=== PATIENT | female | born 1995 | race Caucasian/White ===

== ENCOUNTER 2025-07-16 11:03 | Observation (INO) ==
--- NOTE | 2025-07-16 12:10 | Emergency Department Note ---
Impression & Plan Mastitis, Abscess of right breast associated with ED Provider Note CHIEF COMPLAINT: "Mastitis" HISTORY OF PRESENT ILLNESS: This 30-year-old female patient presents to the emergency department via private vehicle for evaluation of mastitis. The patient was referred by CLINICAL LAB TECHNOLOGIST. She states that she developed redness of the right breast with change in milk output and fever on Saturday. She states that she contacted CLINICAL LAB TECHNOLOGIST on Saturday and was started on dicloxacillin. She has been on this for greater than 48 hours and states her fever has resolved, but the right breast remains very erythematous and firm. She denies any purulent discharge. She states she has had decreased milk output. She states the breast feels very warm. She has been taking Tylenol and ibuprofen with some improvement in her pain, but continued to have moderate to severe pain in the right breast. The patient denies any bodyaches or chills. She denies any other associated symptoms. Patient contacted CLINICAL LAB TECHNOLOGIST earlier today due to the persistent redness and tenderness in the breast and was referred to the emergency department to evaluate for possible abscess. History provided by: Patient REVIEW OF SYSTEMS: A 10 system review of systems was performed with positives and pertinent negatives listed in the history of present illness. All other systems were reviewed and are negative. ALLERGIES: NKDA PHYSICAL EXAM: VITALS: Vitals are noted on the nurse's note and reviewed by myself. GENERAL: This is a 30-year-old female, in no acute distress, nondiaphoretic, well-developed well-nourished. SKIN: Erythema and edema of the right breast with tenderness to palpation. The area is indurated and firm. No obvious fluctuance. Breast milk leaking from the right nipple. No open wounds or cracks in the skin. The skin was without rashes, erythema, edema, or bruising. There is no tenting of the skin. Capillary refill less than 2 seconds. HEAD: Normocephalic atraumatic. EYES: Conjunctivae without injection, sclerae without icterus. Extraocular movements intact. NOSE: Patent, turbinates without inflammation or discharge. No sinus tenderness. MOUTH: Mucous membranes moist. Tonsils are not enlarged. Pharynx without erythema or exudate. Uvula midline. Airway patent. Tongue does not deviate. NECK: Supple without nuchal rigidity. No lymphadenopathy. Cervical spine is nontender. No JVD. HEART: Regular rate and rhythm without murmurs gallops or rubs. LUNGS: Clear to auscultation bilaterally without wheezes, rales or rhonchi. No retractions or accessory muscle use. MUSCULOSKELETAL: No muscle atrophy, erythema, or edema noted. Full range of motion without joint tenderness in all extremities. No tenderness to palpation. Normal gait. Strength 5/5 throughout. NEURO: Patient was alert and oriented to person place and time. No focal neurological deficits. 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 The monitor showed a normal sinus rhythm at a ventricular rate of 78 bpm, per my interpretation. Imaging as interpreted by myself and the radiologist revealed findings concerning for abscess, with radiologist interpretation as above. I agree with the radiologist's findings as based upon my independent interpretation. EMERGENCY DEPARTMENT COURSE: The patient was evaluated as above. The patient presents to the emergency department today at approximately 5 weeks due to persistent erythema, edema, and tenderness of the right breast. The patient is currently on dicloxacillin for mastitis. Fever, chills, body aches have improved. Patient continues to experience worsening redness and pain in the right breast. IV access was obtained, labs were drawn. Blood cultures were obtained and sent to the lab. The patient was hydrated with IV fluids and medicated with Toradol. She was subsequently medicated with vancomycin and ceftriaxone. Labs were reviewed. Per my interpretation, no leukocytosis or concerning anemia. No thrombocytopenia. Renal, hepatic function and electrolytes without significant abnormality. Blood glucose mildly elevated at 138. C-reactive protein elevated 29.79. Procalcitonin normal at 0.31. Lactic acid 1.2. Ultrasound was completed and reviewed by myself radiologist as noted. This does show a superficial subcutaneous fluid collection in the right breast concerning for possible early or developing abscess. I discussed the case with [facility] CLINICAL LAB TECHNOLOGIST on-call. I spoke with Dr. Jerez. She notes that this is a surgical problem and recommends the general surgery be consulted and determine next course of action. She does not feel that patient will likely improve on IV antibiotics without intervention. I discussed the case with general surgery on-call. Spoke with MONIQUE Manzo. She did evaluate the patient. Unable to appreciate a specific area to aspirate or I&D, but would like to continue IV antibiotics and request that the patient be admitted to the hospitalist service for antibiotic management. Dr. Scot Banegas will examine the patient tomorrow and consider aspiration versus I&D if she feels warranted at that time. General surgery notes they will follow along. I discussed the case with Fernando Kenney hospitalist. Hospitalist did agree to evaluate the patient for admission. Please see hospitalist dictation regarding ongoing management and final disposition of this patient. Case was discussed with the attending physician. I attest that I have personally reviewed the patient medication list. I attest that I have reviewed the patient's blood pressure and it was found to be normal. GCS: 15 In the evaluation and treatment of this patient the following differential diagnoses were entertained: Mastitis, abscess, cellulitis, malignancy, sepsis, among others The chart was completed utilizing [employer]facts voice recognition software. Grammatical errors, random word insertions, pronoun errors, and incomplete sentences are an occasional consequence of this system due to software limitations, ambient noise, and hardware issues. Any formal questions or concerns about the content, text, or information contained within the body of this dictation should be directly addressed to the provider for clarification. Past Med/Surg History Problem List (Updated 07/16/25 @ 15:54 by Kaylynn Alves PA-C) Abscess of right breast associated with (Acute) Mastitis (Acute) care and examination (spontaneous vaginal delivery) Need for rhogam due to Rh negative mother Encounter for anatomic survey Early stage of Prior miscarriage with , antepartum Medical History Varicella vaccination Chlamydia Chronic tension type headache Gastroesophageal reflux disease Epigastric abdominal pain Surgical History S/P wisdom tooth extraction Family History Mother Breast cancer Hypertension Grandfather (Maternal) Diabetes Denies family history of Ovarian cancer Prostate cancer Lung cancer Colorectal cancer Social History Smoking Status: Never smoker Tobacco Type: Declines Second Hand Exposure: No; Do You Dip or Chew Tobacco: No; Hx Alcohol Use: No Hx Substance Use: No Preferred Language: Cameroonian Communication Ability: Effective Visual Impairment: No Limitations Hearing Ability: Normal Hat Steamer Required: No Beliefs That Will Affect Care: None marital status: marital status details: Neil Mehta (31) [phone] Current Living Situation: Spouse Current Living Situation Comment: lives with spouse, cat-spouse to change litter current occupational status: employed current occupation: [employer] How many Children do You have: 0 Feels Safe at Home: Yes Childhood Exposure to Second-Hand Smoke: No Diet: regular caffeine: Yes ( coffee ) during the past year weight has: increased > 10 lbs Dental Care, Regularly: Yes Physical Activity Frequency: 1-2 Times per Week Seatbelt Use: always Sunscreen Use: Yes Assistive Devices: None Allergies Allergies Allergy/AdvReac Type Severity Reaction Status Date / Time No Known Allergies Allergy Verified 06/10/25 08:34 Home Meds Home Medications Medication Instructions Recorded Confirmed vits no.124-ferrous fum 1 tab PO DAILY 06/12/25 07/16/25 27 mg iron-folic acid 800 mcg tablet ( Vitamin) Previous Rx's Medication Instructions Recorded dicloxacillin 500 mg capsule 500 mg PO Q6H 10 days #40 caps 07/14/25 Results & Data (ED) Vital Signs Vital Signs - 24 hr 07/16/25 11:03 07/16/25 11:29 07/16/25 13:03 Temperature 36.9 C Temperature Source Temporal Artery Scan Pulse Rate 78 Pulse Rate [Apical] 76 79 Pulse Rhythm [Apical] Regular Regular Pulse Strength [Apical] Normal Normal Respiratory Rate 18 18 16 Respiratory Effort / Characteristics Non-Labored Spontaneous Non-Labored Respiratory Depth Normal Normal Blood Pressure 111/74 Blood Pressure [Left Arm] 136/74 119/74 Blood Pressure Mean 86 Blood Pressure Mean [Left Arm] 94 89 Pulse Oximetry 98 98 99 Oxygen Delivery Method Room Air Room Air Sepsis Recent Fever Within 48 Hours Yes Sepsis New/Unexplained Change in Mental Status No Sepsis Action Taken by Nursing No Action Required Laboratory Data 07/16/25 12:15 07/16/25 12:15 Lab Results 07/16/25 Range/Units 12:15 WBC 6.72 (4.8-10.8) K/ul RBC 4.25 (4.20-5.40) M/uL Hgb 13.1 (12.0-16.0) g/dL Hct 36.6 L (37.0-47.0) % MCV 86.1 (80.0-100.0) fL MCH 30.8 (25.0-34.0) pg MCHC 35.8 (32.0-36.0) g/dL RDW Std Deviation 37.2 (36.4-46.3) fL RDW Coeff of [facility] 11.9 (11.5-14.5) % Plt Count 168 (130-400) K/uL MPV 10.7 (9.4-12.4) fL Immature Gran % (Auto) 0.1 % Neut % (Auto) 73.3 % Lymph % (Auto) 18.8 % [place] % (Auto) 3.9 % Eos % (Auto) 3.3 % Baso % (Auto) 0.6 % Neut # (Auto) 4.93 (1.40-6.50) K/uL Lymph # (Auto) 1.26 (1.20-3.40) K/uL [place] # (Auto) 0.26 (0.11-0.59) K/uL Eos # (Auto) 0.22 (0.00-0.50) K/uL Baso # (Auto) 0.04 (0.00-0.20) K/uL Immature Gran # (Auto) 0.01 (0.01-0.20) K/uL Sodium 142 (136-145) mmol/L Potassium 3.6 (3.5-5.1) mmol/L Chloride 107 (98-107) mmol/L Carbon Dioxide 28 (21-32) mmol/L Anion Gap 7 (3-11) BUN 10 (6-23) mg/dl Creatinine 0.50 L (0.6-1.2) mg/dl Est Cr Clr Drug Dosing 152.2 ml/min eGFR 129.32 BUN/Creatinine Ratio 20.0 (10-20) Glucose 138 H (70-99(Fasting)) mg/dl Lactate 1.2 (0.4-2.0) mmol/L Calcium 9.4 (8.6-10.3) mg/dl Total Bilirubin 0.4 (0.2-1.0) mg/dl AST 29 (13-39) U/L ALT 34 (7-52) U/L Alkaline Phosphatase 75 (34-104) U/L C-Reactive Protein 29.79 H (0-0.5) mg/dl Total Protein 6.7 (6.0-8.3) gm/dl Albumin 3.8 (3.4-5.0) gm/dl Globulin 2.9 (2.5-4.0) gm/dl Albumin/Globulin Ratio 1.3 (0.9-2) Procalcitonin 0.31 (0-0.5) ng/ml Administered Medications Discontinued Medications Sodium Chloride (Nss) 1,000 mls @ 999 mls/hr IV .Q1H1M ONE Stop: 07/16/25 12:52 Last Admin: 07/16/25 12:21 Dose: 999 mls/hr Documented By: nrs Vancomycin HCl 1,750 mg/ (Sodium Chloride) 535 mls @ 200 mls/hr IV NOW ONE Stop: 07/16/25 15:37 Last Admin: 07/16/25 14:14 Dose: 200 mls/hr Documented By: nrs Ceftriaxone Sodium (Rocephin) 2,000 mg in 50 mls @ 100 mls/hr IV NOW STA Stop: 07/16/25 13:26 Last Infusion: 07/16/25 14:22 Dose: Infused Documented By: nrs Admin: 07/16/25 13:47 Dose: 100 mls/hr Documented By: nrs Ketorolac Tromethamine (Ketorolac 30 Mg/Ml Vial) 30 mg IV NOW STA Stop: 07/16/25 11:55 Last Admin: 07/16/25 12:21 Dose: 30 mg Documented By: nrs Imaging Data Radiologist's Impression: Breast Ultrasound 07/16/25 11:54 US breast RT limited CLINICAL HISTORY: mastitis, eval for abscess COMPARISON STUDY: None FINDINGS: From approximately 12-1 o'clock in the left breast there is an oblong thin superficial subcutaneous hypodense finding which measures approximately 4 x 4 cm parallel to the skin surface and approximately 3 mm in maximal depth. No other evidence of abscess seen. IMPRESSION: Small thin nonspecific superficial subcutaneous fluid collection. Differential diagnosis includes subcutaneous edema/fluid and early abscess. Follow-up ultrasound recommended in one month, earlier if clinical symptoms do not improve with antibiotic treatment. ACT 112: Positive. There are findings on this exam that require communication between the performing entity and the patient following Patient Test Result Information Act ([place] Act 112) guidelines. Electronically signed by: Marino Nelson M.D. 07/16/2025 2:08 PM Discharge Plan Visit Data Chief Complaint: Breast Pain/Problems Stated Complaint: MASTITIS, BREAST SWELLING, REDNESS ED Provider: Ricardo Hankins ED Midlevel Provider: Kaylynn Alves Discharge Problem: Mastitis, Abscess of right breast associated with Patient Disposition: Admitted As Inpatient Condition: Good Forms Stand Alone Forms: My [facility] [employer] Prescriptions Prescriptions: No Action dicloxacillin 500 mg capsule 500 mg PO Q6H 10 Days Qty: 40 0RF Vitamin 27 mg iron- 800 mcg Tablet 1 tab PO DAILY Referrals Referrals: Pernell Casey CRNP [Primary Care Provider] -
[2025-07-16] MEDS: SODIUM CHLORIDE 0.9% 1,000 ML IV ONE (12:21)
[2025-07-16] MEDS: KETOROLAC 30 MG/ML VIAL IV STA (12:21)
[2025-07-16 12:38] LABS: Hematocrit (blood only) 36.6 % (37.0-47.0); Hemoglobin 13.1 g/dL (12.0-16.0); Immature Granulocytes # (auto) 0.01 K/uL (0.01-0.20); Immature Granulocytes % (auto) 0.1 %; Mean Corpuscular Hemoglobin 30.8 pg (25.0-34.0); Mean Corpuscular Volume 86.1 fL (80.0-100.0); Platelet Count 168 K/uL (130-400); RDW Standard Deviation 37.2 fL (36.4-46.3); Red Blood Count 4.25 M/uL (4.20-5.40); White Blood Count 6.72 K/ul (4.8-10.8)
[2025-07-16] MEDS ORDERED: VANCOMYCIN CONSULT ACTIVE PRN (12:57)
[2025-07-16 13:26] LABS: Potassium 3.6 mmol/L (3.5-5.1)
[2025-07-16 13:28] LABS: Alanine Aminotransferase 34.0 U/L (7-52); Albumin Globulin Ratio 1.3 (0.9-2); Albumin Level 3.8 gm/dl (3.4-5.0); Alkaline Phosphatase 75.0 U/L (34-104); Anion Gap 7.0 (3-11); Bilirubin,Total 0.4 mg/dl (0.2-1.0); Blood Urea Nitrogen 10.0 mg/dl (6-23); Calcium 9.4 mg/dl (8.6-10.3); Carbon Dioxide 28.0 mmol/L (21-32); Chloride 107.0 mmol/L (98-107); Creatinine Clr Calc Pharmacy 152.2 ml/min; Globulin 2.9 gm/dl (2.5-4.0); Glucose 138.0 mg/dl (70-99(Fasting)); Sodium 142.0 mmol/L (136-145); Total Protein 6.7 gm/dl (6.0-8.3)
[2025-07-16] MEDS: cefTRIAXone SODIUM 2,000 MG/50 ML BAG IV STA (13:47)
--- NOTE | 2025-07-16 14:09 | Ultrasound Report ---
US breast RT limited CLINICAL HISTORY: mastitis, eval for abscess COMPARISON STUDY: None FINDINGS: From approximately 12-1 o'clock in the left breast there is an oblong thin superficial subc utaneous hypodense finding which measures approximately 4 x 4 cm parallel to the skin surface and barbara roximately 3 mm in maximal depth. No other evidence of abscess seen. IMPRESSION: Small thin nonspecific superficial subcutaneous fluid collection. Differential diagnosis includes subcutaneous edema/fluid and early abscess. Follow-up ultrasound recommended in one month, earlier if clinical symptoms do not improve with antibiotic treatment. ACT 112: Positive. There are findings on this exam that require communication between the performing entity and the patient following Patient Test Result Information Act ([place] Act 112) guidelines. Electronically signed by: Marino Nelson M.D. 07/16/2025 2:08 PM
[2025-07-16] MEDS: VANCOMYCIN HCL 1,750 MG in SODIUM CHLORIDE 0.9% 500 ML IV ONE (14:14)
--- NOTE | 2025-07-16 15:24 | Surgery Consultation ---
Date of Consultation July 16, 2025 Assessment & Plan (1) Mastitis: This is a 30yF who is post delivery of a baby girl on 06/12/25 who presents to the [facility] ED on 07/16/25 with complaints of breast pain and redness. Patient states her symptoms started earlier this week a few days ago with fevers/chills/body aches. She noticed breast pain and was started on dicloxacillin on saturday due to concern for mastitis. Her fevers improved after starting the abx, however her breast became more firm and red. She called fire equipment inspector office who referred her to be seen in the ER. A breast US was obtained that revealed a small thin nonspecific superficial subcutaneous fluid collection. Differential diagnosis includes subcutaneous edema/fluid and early abscess. The patient reports she is still able to express milk and has been pumping. She denies any blood or purulent discharge. Her baby has been doing fine drinking from a bottle. In the ER blood work shows WBC 6.7, Hbg 13.1, Cr 0.5. Vital signs are stable and she is without fever. On examination patient is resting in the stretcher in no acute distress. Her right breast has + erythema extending over majority of the R breast with associated induration and tenderness, worse in the upper portions. I cannot palpate any specific area's of fluctuance. Given the amount of erythema would recommend patient be admitted for IV abx management as this has gotten worse since starting her oral abx regimen. Would recommend continuing to pump on a routine regimen as well as utilize warm compresses to the area. I cannot appreciate a localized area of fluctuance, therefore we will see how she fairs with IV abx, and re-evaluate patient tomorrow morning for possible bedside aspiration versus I&D if it evolves. Patient is agreeable with the plan. Could also consider consultants opinion. Supervising Physician Co-Signing Physician Notes This case has been discussed with the surgical PA History of Present Illness History of Present Illness This is a 30yF who is post delivery of a baby girl on 06/12/25 who presents to the [facility] ED on 07/16/25 with complaints of breast pain and redness. Patient states her symptoms started earlier this week a few days ago with fevers/chills/body aches. She noticed breast pain and was started on dicloxacillin on saturday due to concern for mastitis. Her fevers improved after starting the abx, however her breast became more firm and red. She called fire equipment inspector office who referred her to be seen in the ER. A breast US was obtained that revealed a small thin nonspecific superficial subcutaneous fluid collection. Differential diagnosis includes subcutaneous edema/fluid and early abscess. The patient reports she is still able to express milk and has been pumping. She denies any blood or purulent discharge. Her baby has been doing fine drinking from a bottle. Allergies Allergy/AdvReac Type Severity Reaction Status Date / Time No Known Allergies Allergy Verified 06/10/25 08:34 Home Medications Medication Instructions Recorded Confirmed Type vits no.124-ferrous fum 1 tab PO DAILY 06/12/25 07/16/25 History 27 mg iron-folic acid 800 mcg tablet ( Vitamin) dicloxacillin 500 mg capsule 500 mg PO Q6H 10 days #40 caps 07/14/25 07/16/25 Rx Patient History Medical History Varicella vaccination Chlamydia Chronic tension type headache Gastroesophageal reflux disease Epigastric abdominal pain Surgical History S/P wisdom tooth extraction Family History Mother Breast cancer Hypertension Grandfather (Maternal) Diabetes Denies family history of Ovarian cancer Prostate cancer Lung cancer Colorectal cancer Social History Smoking Status: Never smoker Tobacco Type: Declines Second Hand Exposure: No; Do You Dip or Chew Tobacco: No; Hx Alcohol Use: No Hx Substance Use: No Preferred Language: Maori Communication Ability: Effective Visual Impairment: No Limitations Hearing Ability: Normal Branch Library Clerk Required: No Beliefs That Will Affect Care: None marital status: marital status details: Neil Mehta (31) [phone] Current Living Situation: Family Current Living Situation Comment: lives with spouse, cat-spouse to change litter current occupational status: employed 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[employer] How many Children do You have: 0 Other Information That Helps Us Care for You: No Feels Safe at Home: Yes Safety Concerns: Feels Safe At This Time Childhood Exposure to Second-Hand Smoke: No Diet: regular caffeine: Yes ( coffee ) during the past year weight has: increased > 10 lbs Dental Care, Regularly: Yes Physical Activity Frequency: 1-2 Times per Week Seatbelt Use: always Sunscreen Use: Yes Assistive Devices: None Review of Systems Constitutional: + fever, + chills and + body aches Respiratory: no dyspnea Cardiovascular: no chest pain Gastrointestinal: no abdominal pain, no nausea and no vomiting Integumentary: expanding redness of the R breast, tenderness. no abnormal discharge. + milk expression Physical Exam Physical Exam: awake/alert, no distress Constitutional: WD/WN, vitals as above Respiratory: normal respiratory effort Chest (Breasts): Additional Comments: + right breast with + erythema extending over majority of the breast. + induration and tenderness, worse in the upper portions. i cannot palpate any specific area's of fluctuance Results & Data Vital Signs (Past 12 Hours) Vital Signs Temp Pulse Pulse Resp BP BP Pulse Ox 07/16/25 11:29 98.4 F 78 18 111/74 98 07/16/25 11:03 76 18 136/74 98 O2 Del Method 07/16/25 11:29 Room Air 07/16/25 11:03 Room Air Diagnostic Findings US breast RT limited CLINICAL HISTORY: mastitis, eval for abscess COMPARISON STUDY: None FINDINGS: From approximately 12-1 o'clock in the left breast there is an oblong thin superficial subcutaneous hypodense finding which measures approximately 4 x 4 cm parallel to the skin surface and approximately 3 mm in maximal depth. No other evidence of abscess seen. IMPRESSION: Small thin nonspecific superficial subcutaneous fluid collection. Differential diagnosis includes subcutaneous edema/fluid and early abscess. Follow-up ultrasound recommended in one month, earlier if clinical symptoms do not improve with antibiotic treatment. ACT 112: Positive. There are findings on this exam that require communication between the performing entity and the patient following Patient Test Result Information Act ([place] Act 112) guidelines. Electronically signed by: Marino Nelson M.D. 07/16/2025 2:08 PM PG Care Time/CCT Total # of Minutes Spent Total Time Spent with Patient: Total time spent is greater than 50% in coordination of care (as documented) at patient's floor/unit and/or counseling patient: Coding Level of Care Code 82617 IN/OBS CONSULT LVL 2,35M Diagnoses Mastitis N61.0
[2025-07-16 15:26] VITALS: RESP 16
[2025-07-16] MEDS ORDERED: ACETAMINOPHEN 325 MG TAB PO PRN (15:49)
[2025-07-16] MEDS ORDERED: ONDANSETRON INJ 2 MG/ML 2 ML VIAL IV PRN (15:49)
--- NOTE | 2025-07-16 16:02 | History & Physical Report ---
Date of Service July 16, 2025 Assessment & Plan (1) Mastitis: Plan This is a 30 year old female with no significant past medical history who presented to the ED on 07/16/25 for right breast mastitis. While in the ED, she had a right breast ultrasound that is revealing of a small thin nonspecific superficial subcutaneous fluid collection & could not rule out early abscess. Surgery was consulted & has evaluated the patient. Plans are to have IV abx overnight & if not improving, then possible breast aspiration in the AM. She has no leukocytosis and her procal is negative. CRP is elevated at 29.79. renal function & electrolytes are stable. 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 Was on Dicloxacillin 48 hours PROTOZOOLOGIST which helped w/ fever but not breast pain/tenderness. R breast US w/ small thin nonspecific superficial subcutaneous fluid collection. Can not rule out early abscess, rec repeat US in 1 month No leukocytosis. Procal neg. BMP stable. CRP elevated at 29.79, can trend. s/p IV Rocephin & Vanco in ED --> can continue on admission. Swab for MRSA. Surgery consulted --> plan for IV abx overnight & possible aspiration in AM if not improving. Tylenol/Toradol prn for pain/fever; Zofran prn for N/V. Warm compress prn DVT prophylaxis: Encourage ambulation, SCD's Code: Full Case was discussed with Dr. Weathers at time of admission. History of Present Illness Primary Care Provider: ASIA Salgado This is a 30 year old female with no significant past medical history who presented to the ED on 07/16/25 for right breast mastitis. Taabtha was seen & examined this afternoon. She reports that she started to develop symptoms earlier this week with fever, chills, body aches. she then developed breast pain on Saturday & called her OB. She was placed on Dicloxacillin and states her fever subsided ~ 6-8 hours after her first dose of the abx. She reports that after 48 hours her breast pain and tenderness has persisted. She reports no purulent drainage. Reports she was struggling to use her electrical breast pumps at home but the manual pumps here have been working for her. She denies any additional symptoms including CP, SOB, abdominal pain, N/V, urinary/bowel issues. She is 5 weeks post poartum. While in the ED, she had a right breast ultrasound that is revealing of a small thin nonspecific superficial subcutaneous fluid collection & could not rule out early abscess. Surgery was consulted & has evaluated the patient. Plans are to have IV abx overnight & if not improving, then possible breast aspiration in the AM. She has no leukocytosis and her procal is negative. CRP is elevated at 29.79. renal function & electrolytes are stable. Allergies Allergy/AdvReac Type Severity Reaction Status Date / Time No Known Allergies Allergy Verified 06/10/25 08:34 Home Medications Medication Instructions Recorded Confirmed Type vits no.124-ferrous fum 1 tab PO DAILY 06/12/25 07/16/25 History 27 mg iron-folic acid 800 mcg tablet ( Vitamin) dicloxacillin 500 mg capsule 500 mg PO Q6H 10 days #40 caps 07/14/25 07/16/25 Rx Past Med/Surg History Problem List (Updated 07/16/25 @ 15:54 by Kaylynn Alves PA-C) Abscess of right breast associated with (Acute) Mastitis (Acute) care and examination (spontaneous vaginal delivery) Need for rhogam due to Rh negative mother Encounter for anatomic survey Early stage of Prior miscarriage with , antepartum Medical History Varicella vaccination Chlamydia Chronic tension type headache Gastroesophageal reflux disease Epigastric abdominal pain Surgical History S/P wisdom tooth extraction Family History Mother Breast cancer Hypertension Grandfather (Maternal) Diabetes Denies family history of Ovarian cancer Prostate cancer Lung cancer Colorectal cancer Social History Smoking Status: Never smoker Tobacco Type: Declines Second Hand Exposure: No; Do You Dip or Chew Tobacco: No; Hx Alcohol Use: No Hx Substance Use: No Preferred Language: Armenian Communication Ability: Effective Visual Impairment: No Limitations Hearing Ability: Normal Mogul Operator Required: No Beliefs That Will Affect Care: None marital status: marital status details: Neil Mehta (31) [phone] Current Living Situation: Spouse Current Living Situation Comment: lives with spouse, cat-spouse to change litter current occupational status: employed 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 How many Children do You have: 0 Feels Safe at Home: Yes Childhood Exposure to Second-Hand Smoke: No Diet: regular caffeine: Yes ( coffee ) during the past year weight has: increased > 10 lbs Dental Care, Regularly: Yes Physical Activity Frequency: 1-2 Times per Week Seatbelt Use: always Sunscreen Use: Yes Assistive Devices: None Physical Exam Physical Exam: General: NAD, VS: BP 119/74; P79; R16; T36.9C Resp: normal respiratory effort, lungs clear to auscultation CV: RRR, no murmur Extremities: Moves all extremities, no edema Neuro: A&O x3, Skin: intact, right breast w/ erythema & warmth. no wound, purulent drainage present. Results & Data Results & Data Vital Signs (Past 12 Hours) Vital Signs Temp Pulse Pulse Resp BP BP Pulse Ox 07/16/25 13:03 79 16 119/74 99 07/16/25 11:29 36.9 C 78 18 111/74 98 07/16/25 11:03 76 18 136/74 98 O2 Del Method 07/16/25 13:03 07/16/25 11:29 Room Air 07/16/25 11:03 Room Air PG Care Time/CCT Total # of Minutes Spent Total Time Spent with Patient: Total time spent is greater than 50% in coordination of care (as documented) at patient's floor/unit and/or counseling patient: Coding Level of Care Code 06938 INT INP/OBS CARE 3/75MIN Diagnoses Mastitis N61.0
[2025-07-16] MEDS: diphenhydrAMINE 50 MG/ML VIAL IV PRN (18:30)
[2025-07-16] MEDS: KETOROLAC TROMETHAMINE 15 MG/ML VIAL IV PRN (20:24)
[2025-07-16 22:21] VITALS: TEMP 98.2
[2025-07-17 07:53] LABS: Hematocrit (blood only) 35.0 % (37.0-47.0); Hemoglobin 12.5 g/dL (12.0-16.0); Immature Granulocytes # (auto) 0.02 K/uL (0.01-0.20); Immature Granulocytes % (auto) 0.3 %; Mean Corpuscular Hemoglobin 30.9 pg (25.0-34.0); Mean Corpuscular Volume 86.6 fL (80.0-100.0); Platelet Count 179 K/uL (130-400); RDW Standard Deviation 37.7 fL (36.4-46.3); Red Blood Count 4.04 M/uL (4.20-5.40); White Blood Count 6.57 K/ul (4.8-10.8)
[2025-07-17 08:09] LABS: Anion Gap 8.0 (3-11); Blood Urea Nitrogen 8.0 mg/dl (6-23); Calcium 8.8 mg/dl (8.6-10.3); Carbon Dioxide 25.0 mmol/L (21-32); Chloride 107.0 mmol/L (98-107); Creatinine Clr Calc Pharmacy 149.2 ml/min; Glucose 88.0 mg/dl (70-99(Fasting)); Potassium 3.6 mmol/L (3.5-5.1); Sodium 140.0 mmol/L (136-145)
[2025-07-17 08:25] VITALS: BP 113/78; PULSE 74; O2SAT 96
[2025-07-17] MEDS: cefTRIAXone SODIUM 2,000 MG/50 ML BAG IV SCH (12:16)
--- NOTE | 2025-07-17 12:33 | Surgery Progress Note ---
Date of Service July 17, 2025 Assessment & Plan (1) Mastitis: (2) Abscess of right breast associated with : Plan: Mastitis of right breast with abscess formation- 07/16 ultrasound reviewed and it does show a 4 x 4 cm collection of fluid parallel to the skin surface. Unfortunately, on physical exam, the abscess is not palpable. No fluctuance appreciated. No plans for incision and drainage today. Will have patient continue warm compresses around the clock, not just when preparing to pump. Continue IV abx- would recommend a minimum of 24 hrs of IV abx and improvement in right breast cellulitis prior to discharge. Can consider ultrasound-guided needle aspiration- this would not be available until Saturday at the earliest, can consider as outpatient is pt is ready for discharge to home on Saturday. General Surgery will continue to follow closely. Pt seen and examined with Dr. Jacques. Admission and Anticipated Discharge Date Admission Date: July 16, 2025 Supervising Physician Co-Signing Physician Notes I have seen and examined this pt with the surgical PA this am. Area of induration upper inner right breast, erythema across all quadrants Continue IV abx to treat cellulitis involving the entire right breast Continue warm compresses at this time Surgery will follow Subjective Tabatha is resting in bed, reports that right breast is much less red today. 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 She has been applying warm compresses before she pumps. Physical Exam Physical Exam: Right breast is erythematous, area of redness has been marked with skin marker and that redness does extend slightly beyond the markings. There is no palpable area signifying location of abscess. There is no drainage noted on exam and no open areas on the breast. Constitutional: WD/WN, vitals as above Respiratory: normal respiratory effort; no respiratory distress and no labored breathing Results & Data Vital Signs (Past 12 Hours) Vital Signs Temp Pulse Resp BP Pulse Ox O2 Del Method 07/17/25 08:24 36.8 C 74 16 113/78 96 Room Air PG Care Time/CCT Total # of Minutes Spent Total Time Spent with Patient: Total time spent is greater than 50% in coordination of care (as documented) at patient's floor/unit and/or counseling patient: Coding Level of Care Code 98473 SUB INP/OBS CARE 2/35MIN Diagnoses Mastitis N61.0 Abscess of right breast associated with O91.13
--- NOTE | 2025-07-17 13:29 | Discharge Summary ---
<Statement entered by Ekaterina Weathers MD - 07/18/25 07:23> Right breast remains erythematous and warm but significant improvement in redness, tenderness overnight. Not indurated and area above small fluid collection seen on admission ultrasound no longer tender. POCUS exam with significant improvement in fluid collection at 12-1 o'clock position only trivial amount of fluid present and not enough for aspiration. She has been able to reliably express milk by pumping. She strongly wishes to return home with her infant and she is reliable to follow up if she worsens. Given 2g IV ceftriaxone prior to discharge and resume dicloxacillin for mastitis. Discharge Summary Date of Service July 17, 2025 Principal Dx & Hospital Course #1 = Principal Diagnosis (1) Mastitis: Plan This is a 30 year old female with no significant past medical history who presented to the ED on 07/16/25 for right breast mastitis. 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 Was on Dicloxacillin [address] which helped w/ fever but not breast pain/tenderness. R breast US w/ small thin nonspecific superficial subcutaneous fluid collection. Can not rule out early abscess, rec repeat US in 1 month No leukocytosis. Procal neg. BMP stable; CRP elevated at 29.79 but now down trending to 18.19. s/p IV Rocephin, had reaction to Vancomycin & given MRSA swab neg discontinued. Cellulitis improved overnight, US down at bedside by Dr. Weathers revealing improvement of fluid collection found on imaging previous day. Dr. Weathers discussed w/ Gen surg in terms of abscess standpoint, aspiration could be done on outpatient basis if necessary. Based on the fact that her cellulitis has improved after 2 doses of IV abx, patient is safe to be discharged home on PO abx. - resume Dicloxacillin on disch arge. Will check in with patient on 07/18 to ensure she is still improving. She was recommended to call her ULTRASOUND TECH office on 07/19. Continue Warm compresses on discharge. Case was discussed w/ Dr. Weathers at time of discharge. Admission HPI Per Admitting Provider This is a 30 year old female with no significant past medical history who presented to the ED on 07/16/25 for right breast mastitis. Tabatha was seen & examined this afternoon. She reports that she started to develop symptoms earlier this week with fever, chills, body aches. she then developed breast pain on Saturday & called her OB. She was placed on Dicloxacillin and states her fever subsided ~ 6-8 hours after her first dose of the abx. She reports that after 48 hours her breast pain and tenderness has persisted. She reports no purulent drainage. Reports she was struggling to use her electrical breast pumps at home but the manual pumps here have been working for her. She denies any additional symptoms including CP, SOB, abdominal pain, N/V, urinary/bowel issues. She is 5 weeks post poartum. While in the ED, she had a right breast ultrasound that is revealing of a small thin nonspecific superficial subcutaneous fluid collection & could not rule out early abscess. Surgery was consulted & has evaluated the patient. Plans are to have IV abx overnight & if not improving, then possible breast aspiration in the AM. She has no leukocytosis and her procal is negative. CRP is elevated at 29.79. renal function & electrolytes are stable. Discharge Exam General: NAD, VS: BP 113/78; P74; R16; T36.8C Resp: normal respiratory effort Extremities: Moves all extremities, no edema Neuro: A&O x3, Skin: intact, right breast with light pinkness to breast tissue. minimally warm to touch. less tender to palpation Discharge Plan Discharge Items Patient Disposition: Home - Self-Care Reason For Visit: MASTITIS Discharge Diagnosis: Masitits Condition on Discharge: Good Activity: Resume your previous activity Non-emergency contact: Primary Care Provider, Surgeon and Institute Scientist Call non-emergency contact if: you have any medication questions and your symptoms worsen Follow-up/Referrals: Pernell Casey CRNP [Primary Care Provider] - 07/26/25 2:15 pm Harrison Jacques DO [Physician] - Diet: Regular Addtl Attending Provider Instructions: Mrs. Mehta, You were recently hospitalized secondary to right breast pain & tenderness. You were found to have mastitis of your right breast. Fortunately, symptoms have improved after 48 hours of antibiotics. The ultrasound is also showing improvement. Medications: Your medication list has been reviewed and reconciled upon discharge to ensure accuracy and continuity of care. An updated list of all your medications is included with your hospital discharge paperwork. Please review this list closely , and make note of any changes. Please continue on the Dicloxacillin 500mg every 6 hours starting tomorrow morning, 07/17. You may also continue with warm compresses to the area as well. Take your medications as instructed; do not skip a dose of your medicines. Make sure all of your doctors know every medicine you are taking (including zexn-ozf-ecotmee medicines, vitamins, and supplements). Call your primary care provider before taking any new medicines (including over- the-counter medicines, vitamins, and supplements), because some of these may interact with your current medications, or may make your symptoms worse. Tell your primary care provider if you cannot afford your medications. Activity: You can do normal everyday activities as your body allows. Take rest breaks if you feel tired. Do not overexert. Stop activity if you have pain, shortness of breath or feel dizzy. Follow-up appointments: Make an appointment with your primary care physician within one week of discharge. A copy of this summary will be sent to them. Every time you see your primary care physician, or any other doctor, bring your medication list, and a list of questions. Please call the OB office on 07/19 to make them aware of your recent hospital stay. Our service will give you a call tomorrow morning to check on your healing. CONTACT YOUR PRIMARY CARE PROVIDER if you experience any of the following: Shortness of breath or difficulty breathing Fevers or chills Feeling tired with normal activity or experiencing dizziness or fainting Difficulty following your treatment plan, or difficulty taking medications CALL 911 OR GO TO THE EMERGENCY DEPARTMENT if you experience any of the following: Severe abdominal pain or nausea/vomiting Severe chest pain, or chest pain that radiates (moves) to your jaw or arm Sudden, severe shortness of breath or difficulty breathing You have blood cultures pending at the time of discharge, they are negative at 24 hours but take 5 days to get final results. If they turn positive you will be notified, you can also check in with your PCP or the [facility] portal. However, given your symptoms I do not expect they will be positive. Thank you for allowing us to participate in your care. Pending Studies at Discharge: Yes Studies:: final results of blood cultures Stand-Alone Forms: My [employer], Smoking Cessation Medications and DC Order Prescriptions: Continued dicloxacillin 500 mg capsule 500 mg PO Q6H 10 Days Qty: 40 0RF Vitamin 27 mg iron- 800 mcg Tablet 1 tab PO DAILY Discharge Orders: Discharge Order (Routine); Ordered 07/17/25 Ordered By: Cande Hutchins Admission Data Admit Date/Time: 07/16/25 15:49 Attending Provider: Ekaterina Weathers Admit Provider: Ekaterina Weathers Primary Care Provider: Pernell Casey Other Providers: Harrison Jacques; Ekaterina Weathers Other Interventions: Discharge Summary Assessment (RN) Last Done: 07/17/25 13:25 Hospital Stay Data Consultations 07/16/25 14:58 Consult General Surgery Stat 07/16/25 15:36 ED Decision to Admit Stat Diagnostic Imagining Performed 07/16/25 11:54 US breast RT limited Stat Pending Results Patient Have Any Pending Studies at Discharge: Yes Discharge Instructions Given to Patient (Per Discharging Provider) Mrs. Mehta, You were recently hospitalized secondary to right breast pain & tenderness. You were found to have mastitis of your right breast. Fortunately, symptoms have improved after 48 hours of antibiotics. The ultrasound is also showing improvement. Medications: Your medication list has been reviewed and reconciled upon discharge to ensure accuracy and continuity of care. An updated list of all your medications is included with your hospital discharge paperwork. Please review this list closely, and make note of any changes. Please continue on the Dicloxacillin 500mg every 6 hours starting tomorrow morning, 07/17. You may also continue with warm compresses to the area as well. Take your medications as instructed; do not skip a dose of your medicines. Make sure all of your doctors know every medicine you are taking (including bjeh-okb-tocrvbl medicines, vitamins, and supplements). Call your primary care provider before taking any new medicines (including over- the-counter medicines, vitamins, and supplements), because some of these may interact with your current medications, or may make your symptoms worse. Tell your primary care provider if you cannot afford your medications. Activity: You can do normal everyday activities as your body allows. Take rest breaks if you feel tired. Do not overexert. Stop activity if you have pain, shortness of breath or feel dizzy. Follow-up appointments: Make an appointment with your primary care physician within one week of discharge. A copy of this summary will be sent to them. Every time you see your primary care physician, or any other doctor, bring your medication list, and a list of questions. Please call the OB office on 07/19 to make them aware of your recent hospital stay. Our service will give you a call tomorrow morning to check on your healing. CONTACT YOUR PRIMARY CARE PROVIDER if you experience any of the following: Shortness of breath or difficulty breathing Fevers or chills Feeling tired with normal activity or experiencing dizziness or fainting Difficulty following your treatment plan, or difficulty taking medications CALL 911 OR GO TO THE EMERGENCY DEPARTMENT if you experience any of the following: Severe abdominal pain or nausea/vomiting Severe chest pain, or chest pain that radiates (moves) to your jaw or arm Sudden, severe shortness of breath or difficulty breathing You have blood cultures pending at the time of discharge, they are negative at 24 hours but take 5 days to get final results. If they turn positive you will be notified, you can also check in with your PCP or the [facility] portal. However, given your symptoms I do not expect they will be positive. Thank you for allowing us to participate in your care. Total Time Total Time Spent Total Time Spent (In Minutes): 54 Total Time Includes: Examination of the Patient, Discharge Planning, Medication Reconciliation and Communication With Other Providers Coding Level of Care Code 54710 INP/OBS DISCH >30 MIN Diagnoses Mastitis N61.0
== END 2025-07-17 14:30 | disposition home or self-care (01) ==
LOC: SUATTDRO → 3E 11:03 → ED 11:03 → 3E 17:03